=== PATIENT | female | born 1985 | race African-American/Black ===

== ENCOUNTER 2017-04-12 09:29 | Outpatient (CLI) | payer OTHER, SELFPAY ==
[~2017-04-12] VITALS: Ht 160 cm; Wt 86.3 kg
[2017-04-12 09:55] VITALS: BP 134/66
[2017-04-12 10:11] VITALS: BP 135/66
[2017-04-12 10:26] VITALS: BP 128/68
[2017-04-12] MEDS ORDERED: ACETAMINOPHEN 500 MG TAB PO PRN (10:30)
[2017-04-12 10:41] VITALS: BP 137/78
[2017-04-12 10:49] LABS: MEAN CORPUSCULAR HEMOGLOBIN 27.3 pg (27.0-33.0); MEAN CORPUSCULAR HGB CONC 31.6 g/dl (32.0-36.5); MEAN CORPUSCULAR VOLUME 86.5 fl (80.0-96.0); PLATELET COUNT, AUTOMATED 250 10^3/uL (150-450); RED CELL DISTRIBUTION WIDTH 14.5 % (11.5-14.5); WHITE BLOOD COUNT 9.7 10^3/uL (4.0-10.0)
[2017-04-12 10:56] VITALS: BP 134/64
[2017-04-12 11:22] LABS: ALT/SGPT 31 U/L (12-78); AST/SGOT 20 U/L (7-37); BILIRUBIN,TOTAL 0.4 MG/DL (0.2-1.0); GLOMERULAR FILTRATION RATE > 60.0 (>60); URIC ACID 2.6 MG/DL (2.6-6.0)
--- NOTE | 2017-04-12 16:18 | HPE ---
DATE OF ADMISSION: 04/12/2017 This lady is a 32-year-old 2, para 0 who was seen in the clinic today with elevated blood pressures and unresolved headache, temporal on the left side. She did not take anything for her migraine. Last menstrual period (LMP) is 09/14/2016, estimated date of confinement (EDC) 06/21/2017, at 30 weeks of gestation. Risk factor is chronic hypertension (CHTN), on no medications. Body mass index (BMI) of 32.4. PAST HISTORY: In 2015, spontaneous . LABORATORY DATA: B positive, HIV negative, hepatitis negative, RPR negative, rubella immune, Varicella immune. Pap is human papillomavirus (HPV) positive. Gonorrhea and chlamydia are negative. One-hour glucose is 157. Her 1-hour GTT is 108, her 2-hour 160, and her 3-hour was 128. On examination today, she is in no acute distress. Symphysis fundus height is 30. Category 1 strip. No contractions. No vaginal bleeding or loss. Blood pressure is 134/66, respirations are 18, pulse is 139, and temperature is 98.5. Urine is 1.029, pH 5, 3+ glucose, trace of ketones. Nitrates are negative. Hemoglobin 11.1, hematocrit 35.1, platelets are 250. Pre-eclampsia profile is negative. Uric acid is 2.6, and her protein/creatinine ratio was 0.38. Reflexes are normal. Denies visual impairment. Her headaches somewhat resolve on the Tylenol Extra Strength 1000 mg as well as rehydrating. In rehydrating, her urine was considerably better, 1.005, pH of 5, glucose is now 100, trace of protein. We counseled her regarding headache medications, hydration, and the importance of having good hydration in order to decrease the incidence of headache. It was noted that her urine was quite concentrated; however, after increasing her drinking her urine lightened up. She was not having any contractions. She has an appointment 04/25/2017. She was discharged with precautions to followup with her appointments.
== END 2017-04-12 12:51 | disposition home or self-care (01) ==
LOC: M LDO 09:29
PROVIDERS: ATTEND Obstetrics & Gynecology
DX: O99.89 Other specified diseases and conditions complicating pregnancy, childbirth and the puerperium (principal); R51 Headache; O10.911 Unspecified pre-existing hypertension complicating pregnancy, first trimester; O99.213 Obesity complicating pregnancy, third trimester; Z3A.30 30 weeks gestation of pregnancy; O09.293 Supervision of pregnancy with other poor reproductive or obstetric history, third trimester

== ENCOUNTER 2017-06-14 19:23 | Inpatient (IN) | payer OTHER, SELFPAY ==
[2017-06-14] MEDS: miSOPROStol 50 MCG 1/2 TAB (S0191) PO (20:58)
[2017-06-14 21:13] LABS: BASO % 0.2 % (0.0-1.0); EOS % 0.5 % (0.0-3.0); HEMATOCRIT 38.1 % (36.0-47.0); HEMOGLOBIN 12.1 g/dl (12.0-16.0); IMMATURE GRANULOCYTE % 0.4 % (0-0); LYMPH % 35.7 % (24.0-44.0); MEAN CORPUSCULAR HEMOGLOBIN 27.8 pg (27.0-33.0); MEAN CORPUSCULAR HGB CONC 31.8 g/dl (32.0-36.5); MEAN CORPUSCULAR VOLUME 87.4 fl (80.0-96.0); MONO # 0.4 10^3/uL (0.0-0.8); MONO % 7.7 % (0.0-5.0); NEUTROPHILS # 3.1 10^3/uL (1.8-7.7); NEUTROPHILS % 55.5 % (36.0-66.0); PLATELET COUNT, AUTOMATED 240 10^3/uL (150-450); RED BLOOD COUNT 4.36 10^6/uL (4.00-5.40); RED CELL DISTRIBUTION WIDTH 15.2 % (11.5-14.5); WHITE BLOOD COUNT 5.6 10^3/uL (4.0-10.0)
[2017-06-14 21:36] LABS: AMPHETAMINES URINE REFLEX NEGATIVE (NEGATIVE); BARBITURATES URINE REFLEX NEGATIVE (NEGATIVE); BENZODIAZEPINES URINE REFLEX NEGATIVE (NEGATIVE); CANNABINOIDS URINE REFLEX NEGATIVE (NEGATIVE); COCAINE METABOLITE URINE REFLE NEGATIVE (NEGATIVE); METHADONE URINE REFLEX NEGATIVE (NEGATIVE); OPIATES URINE REFLEX NEGATIVE (NEGATIVE); PHENCYCLIDINE URINE REFLEX NEGATIVE (NEGATIVE)
[2017-06-15] MEDS: miSOPROStol 50 MCG 1/2 TAB (S0191) PO (03:03)
[2017-06-15] MEDS: OXYTOCIN DRIP 30 UNITS in APPROPRIATE DILUENT 1 EA IV (10:33)
[2017-06-15] MEDS: LR 1,000 ML IV (10:33)
[2017-06-15 16:46] LABS: ALBUMIN 2.9 GM/DL (3.2-5.2); ALBUMIN/GLOBULIN RATIO 0.66 (1.00-1.93); ALKALINE PHOSPHATASE 197 U/L (45-117); ALT/SGPT 24 U/L (12-78); ANION GAP 9 MEQ/L (8-16); AST/SGOT 23 U/L (7-37); BILIRUBIN,TOTAL 0.4 MG/DL (0.2-1.0); BLOOD UREA NITROGEN 8 MG/DL (7-18); CALCIUM LEVEL 8.5 MG/DL (8.5-10.1); CARBON DIOXIDE LEVEL 21 MEQ/L (21-32); CHLORIDE LEVEL 108 MEQ/L (98-107); CREATININE FOR GFR 0.64 MG/DL (0.55-1.02); GLOMERULAR FILTRATION RATE > 60.0 (>60); GLUCOSE, FASTING 111 MG/DL (70-100); LDH LACTATE DEHYDROGENASE 186 U/L (84-246); POTASSIUM SERUM 3.7 MEQ/L (3.5-5.1); SODIUM LEVEL 138 MEQ/L (136-145); TOTAL PROTEIN 7.3 GM/DL (6.4-8.2); URIC ACID 4.7 MG/DL (2.6-6.0)
[2017-06-15] MEDS: PROMETHAZINE INJ 25 MG/ML VIAL (J2550) IV (17:31)
[2017-06-15] MEDS: BUTORPHANOL 2 MG/ML INJ (J0595) IV (17:32)
[2017-06-15] MEDS ORDERED: FENTANYL 2MCG/ML ROPIVACAINE 0.2% IN 0.9% NACL 200ML IVBAG As Ordered (18:42)
[2017-06-15] MEDS ORDERED: NALOXONE INJ 0.4 MG/1 ML VIAL (J2310) IV ×3 (20:00→23:30)
[2017-06-15] MEDS ORDERED: REFRIGERATOR IV KEYS XX (20:00)
[2017-06-15] MEDS ORDERED: EPIDURAL/PCA KEYS XX (20:00)
[2017-06-15] MEDS ORDERED: EPIDURAL COMMENT XX (20:00)
[2017-06-15] MEDS ORDERED: diphenhydrAMINE INJ 50MG/ML VIAL (J1200) IV (20:00)
[2017-06-15] MEDS: FENTANYL/ROPIVACAINE/NACL BAG 200 ML EPIDURAL (20:00)
[2017-06-15] MEDS ORDERED: LACTATED RINGER'S 1000 ML IV (20:00)
[2017-06-15] MEDS ORDERED: ePHEDrine INJ 50 MG/ML VIAL IV (20:00)
[2017-06-15] MEDS: TERBUTALINE SULFATE 1 MG/ML VIAL (J3105) SC (21:44)
[2017-06-15] MEDS ORDERED: BICITRA 30ML SOLN UDC As Ordered (22:07)
[2017-06-15] MEDS ORDERED: ceFAZolin 2 GM/D5W 50 ML IV BAG (J0690 PER 500MG) As Ordered (22:07)
[2017-06-15] MEDS: BICITRA 30ML SOLN UDC PO (22:32)
[2017-06-15] MEDS ORDERED: OXYTOCIN INJ 10 UNITS/ML VIAL (J2590) As Ordered (22:48)
[2017-06-15] MEDS ORDERED: ONDANSETRON 4MG/2ML VIAL (J2405) As Ordered (22:48)
[2017-06-15] MEDS ORDERED: LIDOCAINE 2% W/EPIN INJ 20ML **PRES FREE As Ordered (22:48)
[2017-06-15] MEDS ORDERED: MORPHINE PRES-FREE INJ 10 MG/10 ML VIAL (J2274) As Ordered (22:57)
[2017-06-15] MEDS ORDERED: MEPERIDINE 50 MG/ML 1ML VIAL (J2175) As Ordered (23:26)
[2017-06-15] MEDS ORDERED: PHENYLephrine HCL 500 MCG/5 ML (100MCG/ML) SYRINGE (J2370) As Ordered ×2 (23:28→23:54)
[2017-06-15] MEDS ORDERED: NALBUPHINE HCL 10 MG/ML AMP (J2300) IV (23:30)
[2017-06-15] MEDS ORDERED: METOCLOPRAMIDE INJ 10MG/2ML VIAL (J2765) IV (23:30)
[2017-06-15] MEDS ORDERED: ONDANSETRON 4MG/2ML VIAL (J2405) IV (23:30)
[2017-06-15 23:36] LABS: CORD GAS ABE V -8.5; CORD GAS HCO3 V 22.6 MEQ/L; CORD GAS O2 SAT V 63.3 %; CORD GAS PCO2 V 69.8 mmHg; CORD GAS PH V 7.129 UNITS; CORD GAS PO2 V 32.1 mmHg; CORD GAS TCO2 V 24.8 MEQ/L
[2017-06-15 23:40] LABS: CORD GAS ABE A -9.2; CORD GAS HCO3 A 23.8 MEQ/L; CORD GAS O2 SAT A 16.4 %; CORD GAS PCO2 A 86.1 mmHg; CORD GAS PH A 7.059 UNITS; CORD GAS PO2 A 13.8 mmHg; CORD GAS SBC A 15.4 MEQ/L; CORD GAS TCO2 A 26.4 MEQ/L
[2017-06-16] MEDS: miSOPROStol 200 MCG TAB (S0191) PR (00:17)
[2017-06-16] MEDS: LR 1,000 ML IV ×2 (00:29→08:29)
[2017-06-16] MEDS ORDERED: fentaNYL 100 MCG/2 ML INJECTION (J3010) As Ordered (01:03)
[2017-06-16] MEDS ORDERED: KETOROLAC 30 MG/ML VIAL (J1885) As Ordered (01:04)
[2017-06-16] MEDS: fentaNYL 100 MCG/2 ML INJECTION (J3010) IV (01:09)
[2017-06-16] MEDS: ONDANSETRON 4MG/2ML VIAL (J2405) IV ×2 (01:11)
[2017-06-16] MEDS: KETOROLAC 30 MG/ML VIAL (J1885) IV ×4 (01:14→18:55)
[2017-06-16] MEDS ORDERED: MEPERIDINE INJ 25 MG/ML VIAL (J2175) IV (01:15)
[2017-06-16] MEDS ORDERED: NALBUPHINE HCL 10 MG/ML AMP (J2300) IV (01:15)
[2017-06-16] MEDS: PERCOCET 5MG/325MG TAB PO ×2 (05:09→12:41)
[2017-06-16] MEDS: DOCUSATE SODIUM 100 MG CAP PO ×2 (09:00→19:54)
[2017-06-16] MEDS: PRENATAL VITAMINS CHEWABLE TABLET PO (09:00)
[2017-06-16] MEDS: LABETALOL 200 MG TAB PO ×2 (12:00→19:54)
[2017-06-16] MEDS: RHOGAM 300 MCG (1500 IU) INJ (J2790) IM (17:25)
[2017-06-16] MEDS: MEASLES,MUMPS,RUBELLA VACCINE INJ (MMR-II) (90707) SC (17:25)
[2017-06-16] MEDS: NIFEdipine 30 MG XL TAB PO (21:26)
[2017-06-17] MEDS: KETOROLAC 30 MG/ML VIAL (J1885) IV (00:51)
[2017-06-17] MEDS: PERCOCET 5MG/325MG TAB PO ×4 (01:45→21:31)
[2017-06-17] MEDS: AMPICILLIN SOD/SULBACTAM SOD 3 GM in D5W MINI-BAG PLUS 100 ML IV ×4 (02:13→21:31)
[2017-06-17] MEDS: LABETALOL 200 MG TAB PO ×3 (04:29→21:33)
[2017-06-17 06:50] LABS: HEMATOCRIT 25.4 % (36.0-47.0); HEMOGLOBIN 8.1 g/dl (12.0-16.0); MEAN CORPUSCULAR HEMOGLOBIN 28.5 pg (27.0-33.0); MEAN CORPUSCULAR HGB CONC 31.9 g/dl (32.0-36.5); MEAN CORPUSCULAR VOLUME 89.4 fl (80.0-96.0); PLATELET COUNT, AUTOMATED 172 10^3/uL (150-450); RED BLOOD COUNT 2.84 10^6/uL (4.00-5.40); RED CELL DISTRIBUTION WIDTH 15.6 % (11.5-14.5); WHITE BLOOD COUNT 14.2 10^3/uL (4.0-10.0)
[2017-06-17] MEDS: IBUPROFEN 800 MG TAB PO ×2 (08:05→17:30)
[2017-06-17] MEDS: DOCUSATE SODIUM 100 MG CAP PO ×2 (08:05→21:31)
[2017-06-17] MEDS: PRENATAL VITAMINS CHEWABLE TABLET PO (08:06)
[2017-06-18] MEDS: IBUPROFEN 800 MG TAB PO ×3 (00:46→17:39)
[2017-06-18] MEDS: AMPICILLIN SOD/SULBACTAM SOD 3 GM in D5W MINI-BAG PLUS 100 ML IV (02:52)
[2017-06-18] MEDS: LABETALOL 200 MG TAB PO ×3 (04:00→22:40)
[2017-06-18] MEDS: DOCUSATE SODIUM 100 MG CAP PO ×2 (09:45→22:40)
[2017-06-18] MEDS: PRENATAL VITAMINS CHEWABLE TABLET PO (09:45)
[2017-06-19] MEDS: IBUPROFEN 800 MG TAB PO ×2 (01:10→10:23)
[2017-06-19] MEDS: LABETALOL 200 MG TAB PO ×2 (05:06→12:51)
[2017-06-19] MEDS: PERCOCET 5MG/325MG TAB PO (05:11)
[2017-06-19] MEDS: DOCUSATE SODIUM 100 MG CAP PO (10:22)
[2017-06-19] MEDS: PRENATAL VITAMINS CHEWABLE TABLET PO (10:22)
== END 2017-06-19 13:40 | disposition home or self-care (01) | DRG 765 ==
LOC: M LDI 19:23 → M OBS 06-16 02:30
PROVIDERS: Obstetrics & Gynecology
PROC: 10D00Z1 Extraction of Products of Conception, Low, Open Approach (ICD-10-PCS; principal; 2017-06-15 22:37)
PROC: 3E0P7GC Introduction of Other Therapeutic Substance into Female Reproductive, Via Natural or Artificial Opening (ICD-10-PCS; 2017-06-15 22:37)
DX: O40.3XX0 Polyhydramnios, third trimester, not applicable or unspecified (principal); O10.02 Pre-existing essential hypertension complicating childbirth; O86.4 Pyrexia of unknown origin following delivery; Z3A.39 39 weeks gestation of pregnancy; O36.63X0 Maternal care for excessive fetal growth, third trimester, not applicable or unspecified; O99.214 Obesity complicating childbirth; E66.9 Obesity, unspecified; Z68.32 Body mass index [BMI] 32.0-32.9, adult; O77.0 Labor and delivery complicated by meconium in amniotic fluid; O32.2XX0 Maternal care for transverse and oblique lie, not applicable or unspecified; Z37.0 Single live birth